=== PATIENT | female | born 1950 | race Caucasian/White ===

== ENCOUNTER → 2021-02-16 | Day surgery (SDC) | payer OTHER ==
[~2021-02-16] VITALS: Ht 165.1 cm; Wt 88.5 kg
[~2021-02-16] MED LIST: ATORVASTATIN CA10 MG PO; CITALOPRAM HBR40 MG PO; LISINOPRIL10 MG PO; METAMUCIL1 DOSE PO
== END | disposition home or self-care (01) ==
LOC: FAS 09:42
DX: K52.9 Noninfective gastroenteritis and colitis, unspecified (principal); K64.8 Other hemorrhoids; K64.4 Residual hemorrhoidal skin tags; R19.4 Change in bowel habit; Z98.51 Tubal ligation status; E78.00 Pure hypercholesterolemia, unspecified; I10 Essential (primary) hypertension; E66.9 Obesity, unspecified; F41.9 Anxiety disorder, unspecified; K21.9 Gastro-esophageal reflux disease without esophagitis
CPT/HCPCS: J2704; J7120